=== PATIENT | male | born 1950 | race Caucasian/White ===

== ENCOUNTER 2019-06-24 07:47 | Inpatient (IN) ==
--- NOTE | 2019-06-09 13:03 | PAT Medication Instructions ---
Medication Instructions Date of Service June 09, 2019 Home Medications ascorbic acid (vitamin C) [Vitamin C] 1 g PO DAILY aspirin [Aspir-81] 81 mg PO DAILY lovastatin 40 mg PO QPM multivitamin 1 cap PO DAILY omega 1-ryq-ixz-fish oil [Fish Oil] 1 cap PO DAILY turmeric root extract 500 mg PO DAILY ASK your prescriber and surgeon aspirin [Aspir-81] 81 mg PO DAILY STOP taking 2 weeks before surgery (or as soon as possible if surgery is within 2 weeks) omega 0-ylq-cue-fish oil [Fish Oil] 1 cap PO DAILY turmeric root extract 500 mg PO DAILY DO NOT take the morning of surgery ascorbic acid (vitamin C) [Vitamin C] 1 g PO DAILY multivitamin 1 cap PO DAILY Take evening before surgery lovastatin 40 mg PO QPM Other Notes If you have any questions please call us at [phone] or [phone] or [phone] or [phone]
--- NOTE | 2019-06-10 10:48 | Anesthesiology Consultation ---
Date of Service June 10, 2019 Assessment & Plan (1) Encounter for pre-operative examination: Chart Review Chart Review: Acceptable Risk for Surgery and Patient seen in Pre Admission Testing Teaching & Discussion Instructed NPO after midnight before surgery, except medications with 15 cc of water. Medication instructions provided according to the PAT guidelines. History Surgery Operation Date: 06/24/19 10:05 Proposed Procedures p L3-S1 Decompression and Fusion, Spinal Cord Monitoring - Marcial Pack, Height/Weight Height: 5 ft 10 in Weight: 100.7 kg Allergies Allergy/AdvReac Type Severity Reaction Status Date / Time No Known Allergies Allergy Verified 06/02/19 14:54 Medications Home Medications Medication Instructions Recorded Confirmed Last Taken ascorbic acid (vitamin C) [Vitamin 1 g PO DAILY 06/02/19 06/02/19 Unknown C] aspirin [Aspir-81] 81 mg PO DAILY 06/02/19 06/02/19 Unknown lovastatin 40 mg PO QPM 06/02/19 06/02/19 Unknown multivitamin 1 cap PO DAILY 06/02/19 06/02/19 Unknown omega 0-clw-tbj-fish oil [Fish Oil] 1 cap PO DAILY 06/02/19 06/02/19 Unknown turmeric root extract 500 mg PO DAILY 06/02/19 06/02/19 Unknown Past Medical History Medical History History of cellulitis 2014 Hyperlipidemia Protrusion of intervertebral disc Sleep apnea CPAP Spinal stenosis Exercise / Class Metabolic Activity II 4-5 Yardwork/Stairs/Walk up hill (Limited by leg/back pain currently) Past Surgical History Surgical History History of colonoscopy Past Anesthesia History No Hx of Anesthesia Complications and No Family Hx of Anesthesia Complications GA NAIVE. History of PONV No Hx of PONV and No Hx of Motion Sickness Social History Smoking Status: Never smoker Do You Dip or Chew Tobacco: No Hx Alcohol Use: No Hx Substance Use: No substance use type: does not use Review of Systems Pt denies any recent chest pain, shortness of breath, palpitations, cough, fever or URI. Physical Exam Vital Signs BP: 120/77 P: 74bpm SPO2: 95% RA T: 98.2 F R: 16 ENMT Mouth: no dental restorations, no chipped teeth and no loose teeth Thyromental Distance: < 3.5 Finger Breadths (3) Mallampati Class: I Neck normal visual inspection; neck extension not limited Respiratory normal respiratory effort Auscultation: lungs clear to auscultation bilaterally Cardiovascular Rate/Rhythm: regular rate and regular rhythm Heart Sounds: + murmur (I/) Vessels: no carotid bruit Testing Laboratory Results 06/10/19 11:02 06/10/19 11:02 PT 10.2 Seconds (9.0-12.0) 06/10/19 11:02 INR 1.0 (0.9-1.1) 06/10/19 11:02 APTT 25.9 Seconds (21.0-31.0) 06/10/19 11:02 Blood Type O Positive 06/10/19 11:02 Antibody Screen NEGATIVE 06/10/19 11:02 Electrocardiogram Date: 06/10/19 Findings: + NSR @ (70bpm) Chest X-Ray Date: 06/10/19 Findings: + NAD
--- NOTE | 2019-06-10 11:43 | XRay Report ---
XR chest Pre-admission PA/Lat CLINICAL HISTORY: Preoperative chest COMPARISON STUDY: No previous studies for comparison. FINDINGS: The heart is the upper limits of normal in size. There is aortic tortuosity. There is no fa ilure. There is no focal pulmonary consolidation. No pleural effusions are visualized.[ IMPRESSION: No active disease in the chest. ACT 112: Negative or not required by law. Electronically signed by: Juan Man M.D. 06/10/2019 11:42 AM
[2019-06-10 12:08] LABS: Basophils # (auto) 0.03 K/uL (0-0.2); Basophils % (auto) 0.5 %; Eosinophils # (auto) 0.14 K/uL (0-0.5); Eosinophils % (auto) 2.5 %; Hematocrit (blood only) 41.9 % (42-52); Hemoglobin 14.4 g/dL (14.0-18.0); Immature Granulocytes # (auto) 0.01 K/uL (0.00-0.02); Immature Granulocytes % (auto) 0.2 %; Lymphocytes # (auto) 1.72 K/uL (1.2-3.4); Lymphocytes % (auto) 30.8 %; Mean Corpuscular Hemoglobin 31.3 pg (25-34); Mean Corpuscular Hgb Conc 34.4 g/dL (32-36); Mean Corpuscular Volume 91.1 fL (80-100); Mean Platelet Volume 10.8 fL (7.4-10.4); Monocytes # (auto) 0.65 K/uL (0.11-0.59); Monocytes % (auto) 11.6 %; Neutrophils # (auto) 3.04 K/uL (1.4-6.5); Neutrophils % (auto) 54.4 %; Platelet Count 197 K/uL (130-400); RDW Coefficient of Variation 13.1 % (11.5-14.5); RDW Standard Deviation 42.9 fL (36.4-46.3); White Blood Count 5.59 K/uL (4.8-10.8)
[2019-06-10 12:20] LABS: Partial Thromboplastin Time 25.9 Seconds (21.0-31.0); Prothrombin Time 10.2 Seconds (9.0-12.0)
--- NOTE | 2019-06-10 13:05 | Electrocardiogram Report ---
Test Reason : Blood Pressure : / mmHG Vent. Rate : 070 BPM Atrial Rate : 070 BPM P-R Int : 160 ms QRS Dur : 092 ms QT Int : 378 ms P-R-T Axes : 061 -12 008 degrees QTc Int : 408 ms Normal sinus rhythm Normal ECG No previous ECGs available Confirmed by Maynor Dickson ([id number]) on 06/10/2019 1:05:37 PM Referred By: Marcial Pack Confirmed By:Markie Dickson
[2019-06-10 13:17] LABS: BUN Creatinine Ratio 18.2 (10-20); Calcium 9.2 mg/dl (8.5-10.1); Creatinine Clr Calc Pharmacy 101.3 ml/min; Est GFR (African American) 104.8; Est GFR (Non-African American) 90.4; Potassium 4.1 mmol/L (3.5-5.1)
[~2019-06-24 07:47] MED LIST: ACETAMINOPHEN 500 MG TAB PO SCH; BACITRACIN INJ 50,000 UNIT VIAL ONE; BUPIVACAINE/EPINEPHRINE 0.5% MPF 1:200,000 10 ML VIAL ONE; CEFAZOLIN 2000MG 2,000 MG/15 ML SYR IV SCH; CeleBREX 200 MG CAP PO SCH; GABAPENTIN 300 MG CAP PO SCH; LR 15ML/HR IV SCH; MIDAZOLAM HCL 1 MG/ML 2ML VIAL ONE; fentaNYL citrate 100 MCG/2 ML VIAL ONE
--- NOTE | 2019-06-24 07:56 | History & Physical Report ---
Date of Service June 24, 2019 Assessment & Plan (1) Neurogenic claudication due to lumbar spinal stenosis: L3-S1 decompression fusion Present on Admission?: Yes History of Present Illness Chief Complaint: Back and leg pain Primary Care Provider: Arnoldo Malik MD This is a 69-year-old male who presents with chronic persistent back and leg pain after failing extensive course of nonoperative care is here for surgical invention. Allergies Allergy/AdvReac Type Severity Reaction Status Date / Time No Known Allergies Allergy Verified 06/02/19 14:54 Home Medications Home Medications Medication Instructions Recorded Confirmed Type ascorbic acid (vitamin C) [Vitamin 1 g PO DAILY 06/02/19 06/02/19 History C] aspirin [Aspir-81] 81 mg PO DAILY 06/02/19 06/02/19 History lovastatin 40 mg PO QPM 06/02/19 06/02/19 History multivitamin 1 cap PO DAILY 06/02/19 06/02/19 History omega 6-xgr-pqh-fish oil [Fish Oil] 1 cap PO DAILY 06/02/19 06/02/19 History turmeric root extract 500 mg PO DAILY 06/02/19 06/02/19 History Past Med/Surg History Medical History History of cellulitis 2014 Hyperlipidemia Protrusion of intervertebral disc Sleep apnea CPAP Spinal stenosis Surgical History History of colonoscopy Social History Preferred Language: Montserratian Communication Ability: Effective Clinical Rehabilitation Coordinator Required: No Beliefs That Will Affect Care: Jain Jain Beliefs: BUDDHISM Current Living Situation: Spouse Other Information That Helps Us Care for You: No Feels Safe at Home: Yes Smoking Status: Never smoker Do You Dip or Chew Tobacco: No ; Hx Alcohol Use: No Hx Substance Use: No Physical Exam Physical Exam: Patient alert and oriented neurologically intact.
--- NOTE | 2019-06-24 07:56 | History & Physical Bridge Note ---
Date of Service June 24, 2019 History & Physical Bridge Note I have examined the patient, reviewed the History & Physical and in the interval since the performance of the History & Physical I have noted the following changes of clinical significance: no changes noted
[2019-06-24] MEDS ORDERED: ONDANSETRON INJ 2 MG/ML 2 ML VIAL IV PRN ×2 (08:20→12:51)
[2019-06-24] MEDS ORDERED: ATROPINE SULFATE 0.1 MG/ML 10ML SYR IV PRN (08:20)
[2019-06-24] MEDS ORDERED: ePHEDrine sulfate 50 MG/ML AMP IV PRN (08:20)
[2019-06-24] MEDS ORDERED: PROMETHAZINE HCL 6.25 MG in SODIUM CHLORIDE 0.9% 50 ML IV PRN (08:20)
[2019-06-24] MEDS ORDERED: HYDROmorphone INJ 2 MG/ML SYR/VIAL IV PRN (08:20)
[2019-06-24] MEDS ORDERED: HYDROmorphone INJ 2 MG/ML SYR/VIAL ONE (08:50)
[2019-06-24] MEDS ORDERED: LARYING-O-JET KIT (LTA) ONE (09:14)
[2019-06-24] MEDS ORDERED: PHENYLEPHRINE 100MCG/ML 5ML SYR ONE (09:14)
[2019-06-24] MEDS ORDERED: ROCURONIUM BROMIDE 10 MG/ML 5 ML VIAL ONE (09:14)
[2019-06-24] MEDS ORDERED: NEOSTIGMINE METHYLSULFATE 1 MG/ML 10ML VIAL ONE (09:14)
[2019-06-24] MEDS ORDERED: PROPOFOL IV EMULSION 10 MG/ML 20 ML VIAL IV ONE (09:14)
[2019-06-24] MEDS ORDERED: DEXAMETHASONE SOD INJ 4 MG/ML VIAL ONE (09:14)
[2019-06-24] MEDS ORDERED: LIDOCAINE HCL 2% 2 ML VIAL/AMP(20MG/ML) INFIL ONE (09:14)
[2019-06-24] MEDS ORDERED: GLYCOPYRROLATE 0.2 MG/ML VIAL ONE (09:14)
[2019-06-24] MEDS ORDERED: ONDANSETRON INJ 2 MG/ML 2 ML VIAL ONE (09:14)
[2019-06-24] MEDS ORDERED: DURASEAL DURAL SEALANT 5ML TOP ONE (10:48)
[2019-06-24] MEDS ORDERED: FLOSEAL HEMOSTATIC MATRIX 10ML TOP ONE (10:49)
--- NOTE | 2019-06-24 11:00 | Operative Report ---
Post Operative Report Pre & Post Diagnosis Operation Date: 06/24/19 10:05 Pre-Op Diagnosis: Spinal Stenosis, Lumbar Region Post-Op Diagnosis: Spinal Stenosis, Lumbar Region I identified the patient and participated in the time-out.: Yes Procedure Operation Date: 06/24/19 10:05 Actual Procedures #1 lumbar decompression with bilateral medial facetectomies foraminotomies L2-3, L3-4, L4-5. #2 posterior spinal fusion L3-4 L4-5 L5-S1. #3 placement posterior segmental instrumentation including a cross-link from L3-S1. #4 placement locally harvested morselized autograft in the posterior lateral gutters. #5 placement infuse collagen sponge, master graft in the posterior lateral gutters and osteopenia by space. Surgeon Marcial Pack, DO Maintenance Carpenter Greyson Dodson Estimated Blood Loss 300 Findings Consistent with Post-Op Diagnosis Specimens None Indications This is a 61-year-old male who presents above-mentioned diagnosis after failing extensive course of nonoperative care elected to go with above-mentioned procedure. Description of Procedure Patient was met with identified informed consent obtained. Patient was then taken to the operative suite underwent intubation placed in a prone position the Reagan table on top of the Miguel frame. All bony prominences were well-padded eyes inspected to ensure no external pressure placed upon. This point the lumbar spine was prepped and draped in normal sterile fashion. Sharp dissection with the assistance of Bovie cautery was performed down to and exposing the lamina and transverse processes of L3 L4-5 and sacral ala bilaterally. From caudal cephalad fashion complete laminectomy of L4 L3 partial laminectomy of L2 was performed with bilateral medial facetectomies and foraminotomies. I did experience an incidental durotomy along the left posterior aspect of the sacrum. The bone was very thin and during this preparation for fusion durotomy was noted. I did place DuraGen and DuraSeal over the area all evidence of fluid will leak was addressed. Pedicle screws were then placed in L3-L4-L5 and S1 levels bilaterally with assistance of fluoroscopy the proper sized yumiko locked into position as well as a cross-link. The transverse processes of L3-L4-L5 and the sacral ala were then burred to subcortical bleeding bone. Infuse collagen sponge master graft local autograft was placed in the posterior lateral gutters. 15 round BORIS drain inserted. Incision was then closed with 1 Vicryl in the fascia 2-0 Vicryl subcutaneously and 4 Monocryl for final skin closure. Steri- Strips dressings placed. Patient will continue PACU stable condition. Please note Greyson Dodson was present at the entire procedure involved the patient positioning complex portions of the surgery and final skin closure. Lastly spinal cord monitoring was utilized that the procedure no changes noted. I attest to the content of the Intraoperative Record and any orders documented therein. Any exceptions are noted below.
--- NOTE | 2019-06-24 11:20 | Fluoroscopy Report ---
FL lumbar spine 2-3V CLINICAL HISTORY: L3-S1 DECOMPRESSION AND FUSION COMPARISON STUDY: None. FLUOROSCOPY TIME: 35.4 seconds. FLUOROSCOPIC IMAGES: 2 FINDINGS: These images demonstrate a posterior decompression. There are bilateral pedicle screws at t he L3, L4, L5 and S1 levels with interconnecting rods. There are no unexpected radiopaque foreign bod ies. IMPRESSION: Fluoroscopic images demonstrating an L3-S1 decompression and fusion. ACT 112: Negative or not required by law. Electronically signed by: Shahid Henao M.D. 06/24/2019 11:19 AM
[2019-06-24] MEDS: fentaNYL citrate 100 MCG/2 ML VIAL IV PRN ×2 (11:46→12:00)
--- NOTE | 2019-06-24 12:02 | Anesthesiology Progress Note ---
Date of Service June 24, 2019 Anesthesia Post Procedure Vital Signs Vital Signs: Temp Pulse Pulse Resp BP BP Pulse Ox 06/24/19 11:55 81 14 147/78 H 95 06/24/19 11:45 81 12 136/76 95 06/24/19 11:35 82 12 144/86 H 98 06/24/19 11:25 36.5 C 78 12 142/80 H 97 06/24/19 08:06 37.1 C 86 18 170/91 H 95 Pain Intensity Lower Back: Pain Intensity: 4 Transfer of Care Handoff Completed per policy Notes Mental Status: alert / awake / arousable Patient Amnestic to Procedure: Yes Nausea / Vomiting: adequately controlled Pain: adequately controlled Airway Patency, RR, SpO2: stable & adequate BP & HR: stable & adequate Hydration State: stable & adequate Anesthetic Complications: no major complications apparent
[2019-06-24] MEDS ORDERED: FAMOTIDINE 20 MG TAB PO PRN (12:51)
[2019-06-24] MEDS ORDERED: DO NOT ADMINISTER PNEUMOCOCCAL VACCINE PRN (12:51)
[2019-06-24] MEDS ORDERED: LORazepam 0.5 MG TAB PO PRN (12:51)
[2019-06-24] MEDS ORDERED: bisacodyL 10 MG SUPP PR PRN (12:51)
[2019-06-24] MEDS ORDERED: TRAMADOL HCL 50 MG TABLET PO PRN (12:51)
[2019-06-24] MEDS ORDERED: MAGNESIUM HYDROXIDE SUSP 30 ML UDC PO PRN (12:51)
[2019-06-24] MEDS ORDERED: LORazepam 0.5 MG/1 ML VIAL IV PRN (12:51)
[2019-06-24] MEDS ORDERED: HYDROmorphone INJ 0.5 MG/0.5 ML SYR IV PRN (12:51)
[2019-06-24] MEDS ORDERED: HYDROmorphone INJ 1 MG/ML SYRINGE IV PRN (12:51)
[2019-06-24] MEDS ORDERED: PROMETHAZINE HCL 12.5 MG in SODIUM CHLORIDE 0.9% 50 ML IV PRN (12:51)
[2019-06-24] MEDS ORDERED: ACETAMINOPHEN 1,000 MG/100 ML VIAL IV PRN (12:51)
[2019-06-24] MEDS ORDERED: DO NOT ADMINISTER FLU VACCINE PRN (12:51)
[2019-06-24] MEDS ORDERED: ONDANSETRON 4 MG OD TAB PO PRN (12:51)
[2019-06-24] MEDS ORDERED: METOCLOPRAMIDE HCL INJ 5 MG/ML 2 ML VIAL IV PRN (12:51)
[2019-06-24] MEDS ORDERED: ACETAMINOPHEN 500 MG TAB PO PRN (12:51)
[2019-06-24] MEDS ORDERED: SOD PHOSPHATE/SOD BIPHOSPHATE ENEMA 132 ML BTL PR PRN (12:51)
[2019-06-24] MEDS ORDERED: NALOXONE HCL 0.4 MG/1 ML VIAL/CARP IV PRN (12:51)
[2019-06-24] MEDS: KETOROLAC TROMETHAMINE 15 MG/ML VIAL IV SCH ×2 (13:23→20:02)
[2019-06-24] MEDS: LACTATED RINGER'S 1,000 ML IV SCH ×2 (13:25→19:33)
[2019-06-24] MEDS: OXYCODONE HCL IR 5 MG TAB (IMMEDIATE RELEASE) PO PRN ×2 (16:52→23:58)
[2019-06-24] MEDS: CEFAZOLIN 2000MG 2,000 MG/15 ML SYR IV SCH (19:33)
[2019-06-24] MEDS: LOVASTATIN 20 MG TAB PO SCH (20:11)
[2019-06-24] MEDS: DOCUSATE SODIUM/SENNA 50/8.6MG TAB PO SCH (20:11)
[2019-06-25] MEDS: CEFAZOLIN 2000MG 2,000 MG/15 ML SYR IV SCH (02:12)
[2019-06-25] MEDS: KETOROLAC TROMETHAMINE 15 MG/ML VIAL IV SCH ×2 (02:12→09:14)
[2019-06-25] MEDS: LACTATED RINGER'S 1,000 ML IV SCH (02:13)
[2019-06-25 05:57] LABS: Basophils # (auto) 0.01 K/uL (0-0.2); Basophils % (auto) 0.1 %; Eosinophils # (auto) 0.01 K/uL (0-0.5); Eosinophils % (auto) 0.1 %; Hematocrit (blood only) 31.9 % (42-52); Hemoglobin 11.1 g/dL (14.0-18.0); Immature Granulocytes # (auto) 0.03 K/uL (0.00-0.02); Immature Granulocytes % (auto) 0.3 %; Lymphocytes # (auto) 1.26 K/uL (1.2-3.4); Lymphocytes % (auto) 13.1 %; Mean Corpuscular Hemoglobin 30.9 pg (25-34); Mean Corpuscular Hgb Conc 34.8 g/dL (32-36); Mean Corpuscular Volume 88.9 fL (80-100); Monocytes # (auto) 1.04 K/uL (0.11-0.59); Monocytes % (auto) 10.8 %; Neutrophils # (auto) 7.28 K/uL (1.4-6.5); Neutrophils % (auto) 75.6 %; Platelet Count 175 K/uL (130-400); RDW Coefficient of Variation 12.9 % (11.5-14.5); RDW Standard Deviation 41.5 fL (36.4-46.3); Red Blood Count 3.59 M/uL (4.7-6.1); White Blood Count 9.63 K/uL (4.8-10.8)
[2019-06-25] MEDS: OXYCODONE HCL IR 5 MG TAB (IMMEDIATE RELEASE) PO PRN ×4 (06:08→23:24)
[2019-06-25] MEDS: POLYETHYLENE (MIRALAX) 17 GM PACK PO SCH ×4 (06:09→23:25)
[2019-06-25 06:22] LABS: BUN Creatinine Ratio 18.3 (10-20); Calcium 8.3 mg/dl (8.5-10.1); Creatinine Clr Calc Pharmacy 119.7 ml/min; Est GFR (African American) 111.7; Est GFR (Non-African American) 96.4; Potassium 3.9 mmol/L (3.5-5.1)
[2019-06-25] MEDS: ASCORBIC ACID 500 MG TAB PO SCH (09:13)
[2019-06-25] MEDS: MULTIVITAMIN TAB PO SCH (09:13)
[2019-06-25] MEDS: ASPIRIN 81 MG ECTAB PO SCH (09:13)
--- NOTE | 2019-06-25 10:44 | Orthopedic Progress Note ---
Date of Service June 25, 2019 Assessment & Plan (1) Neurogenic claudication due to lumbar spinal stenosis: At this time we will allow him to sit up in bed as tolerated. Pending his progress throughout the day when I see him tomorrow I may initiate physical therapy. Present on Admission?: Yes Admission and Anticipated Discharge Date Admission Date: June 24, 2019 Subjective Patient's back pain is controlled he is no leg pain denies any nausea vomiting headaches or photophobia. Physical Exam Physical Exam: On exam is able to sit up in bed. He has excellent strength testing lower extremities. Results & Data ([facility]) Vital Signs (Past 12 Hours) Vital Signs Temp Pulse Resp BP Pulse Ox 06/25/19 07:40 94 06/25/19 07:23 36.4 C L 74 16 123/74 94 06/25/19 03:18 36.5 C 80 16 113/65 94 06/24/19 23:14 36.8 C 100 H 16 106/65 94
[2019-06-25] MEDS: ALUMINUM/MAGNESIUM SUSP 30 ML UDC PO PRN (17:38)
[2019-06-25] MEDS: LOVASTATIN 20 MG TAB PO SCH (20:16)
[2019-06-25] MEDS: DOCUSATE SODIUM/SENNA 50/8.6MG TAB PO SCH (20:16)
[2019-06-26] MEDS: POLYETHYLENE (MIRALAX) 17 GM PACK PO SCH ×4 (05:56→23:51)
[2019-06-26] MEDS: ASPIRIN 81 MG ECTAB PO SCH (08:50)
[2019-06-26] MEDS: MULTIVITAMIN TAB PO SCH (08:50)
[2019-06-26] MEDS: ASCORBIC ACID 500 MG TAB PO SCH (08:51)
--- NOTE | 2019-06-26 10:13 | Orthopedic Progress Note ---
Date of Service June 26, 2019 Assessment & Plan (1) Neurogenic claudication due to lumbar spinal stenosis: This time will initiate bed to chair and bathroom privileges today. If he tolerates this well and will increase activity tomorrow with physical therapy. I did remove his drain this morning. Present on Admission?: Yes Admission and Anticipated Discharge Date Admission Date: June 24, 2019 Subjective Patient's back pain is controlled denies nausea vomiting or headaches. Physical Exam Physical Exam: On exam I did have him sit up and stand without difficulty. He is somewhat weak but tolerated this relatively well. No strength deficits noted. Results & Data ([facility]) Vital Signs (Past 12 Hours) Vital Signs Temp Pulse Resp BP Pulse Ox 06/26/19 07:18 36.9 C 72 16 113/69 95 06/26/19 04:33 94 06/25/19 23:39 16 93 06/25/19 22:57 37.0 C 86 16 117/67 87 L
[2019-06-26] MEDS: OXYCODONE HCL IR 5 MG TAB (IMMEDIATE RELEASE) PO PRN ×3 (10:22→20:07)
[2019-06-26] MEDS: LOVASTATIN 20 MG TAB PO SCH (22:07)
[2019-06-26] MEDS: DOCUSATE SODIUM/SENNA 50/8.6MG TAB PO SCH (22:08)
[2019-06-27] MEDS: ALUMINUM/MAGNESIUM SUSP 30 ML UDC PO PRN (02:03)
[2019-06-27] MEDS: OXYCODONE HCL IR 5 MG TAB (IMMEDIATE RELEASE) PO PRN ×4 (02:04→21:30)
[2019-06-27] MEDS: POLYETHYLENE (MIRALAX) 17 GM PACK PO SCH ×2 (05:43→13:15)
--- NOTE | 2019-06-27 07:50 | Anesthesiology Progress Note ---
Date of Service June 27, 2019 Anesthesia Post Procedure Vital Signs Vital Signs: Temp Pulse Pulse Pulse Resp BP Pulse Ox 06/27/19 07:44 94 06/27/19 07:20 37.2 C 95 H 13 126/70 89 L 06/26/19 22:52 37.3 C 88 16 131/88 91 06/26/19 15:02 36.7 C 81 18 130/56 L 95 Pain Intensity Lower Back: Pain Intensity: 5 Notes Mental Status: alert / awake / arousable and participated in evaluation Patient Amnestic to Procedure: Yes Nausea / Vomiting: adequately controlled Pain: adequately controlled Airway Patency, RR, SpO2: stable & adequate BP & HR: stable & adequate Hydration State: stable & adequate Anesthetic Complications: no major complications apparent and Pt Satisfied with anesthetic care
[2019-06-27] MEDS: MULTIVITAMIN TAB PO SCH (08:37)
[2019-06-27] MEDS: ASPIRIN 81 MG ECTAB PO SCH (08:37)
[2019-06-27] MEDS: ASCORBIC ACID 500 MG TAB PO SCH (08:37)
--- NOTE | 2019-06-27 12:21 | Orthopedic Progress Note ---
Date of Service June 27, 2019 Assessment & Plan (1) Neurogenic claudication due to lumbar spinal stenosis: At this time we will continue to advance his bowel regimen to be ambulate as tolerated. Hopefully will be able to discharge home tomorrow. Present on Admission?: Yes Admission and Anticipated Discharge Date Admission Date: June 24, 2019 Subjective Patient's back pain is controlled leg symptoms markedly improved. Denies any nausea vomiting headaches. He is struggling with significant abdominal discomfort. He has been on a liquid diet only. Physical Exam Physical Exam: On exam is good strength testing. His abdomen is distended. Results & Data ([facility]) Vital Signs (Past 12 Hours) Vital Signs Temp Pulse Resp BP Pulse Ox 06/27/19 07:44 94 06/27/19 07:20 37.2 C 95 H 13 126/70 89 L
[2019-06-27] MEDS: LOVASTATIN 20 MG TAB PO SCH (21:31)
[2019-06-27] MEDS: DOCUSATE SODIUM/SENNA 50/8.6MG TAB PO SCH (21:31)
[2019-06-28] MEDS: OXYCODONE HCL IR 5 MG TAB (IMMEDIATE RELEASE) PO PRN (06:09)
[2019-06-28] MEDS: MULTIVITAMIN TAB PO SCH (08:26)
[2019-06-28] MEDS: ASCORBIC ACID 500 MG TAB PO SCH (08:26)
[2019-06-28] MEDS: ASPIRIN 81 MG ECTAB PO SCH (08:26)
--- NOTE | 2019-06-28 10:46 | Discharge Summary ---
Date of Service June 28, 2019 Admission HPI Per Admitting Provider This is a 69-year-old male who presents with chronic persistent back and leg pain after failing extensive course of nonoperative care is here for surgical invention. Principal Diagnosis Lumbar spinal stenosis with neurogenic claudication Discharge Data Allergies Allergy/AdvReac Type Severity Reaction Status Date / Time No Known Allergies Allergy Verified 06/24/19 08:05 Consultations 06/24/19 12:51 Consult Case Management - Discharge Planning Routine Procedures Performed Operation Date: 06/24/19 10:05 Actual Procedures p L3-S1 Decompression and Fusion, Spinal Cord Monitoring, - DO hector Barragan Repair of Dura Tear - Marcial Pack DO Ordered Studies 06/24/19 [place] fluoroscopy <1hr Routine [place] lumbar spine 2-3V Routine Hospital Course (1) Neurogenic claudication due to lumbar spinal stenosis: Patient underwent lumbar decompression fusion tolerated so was taken to orthopedic for postoperative. Postop day 1 I did maintain bedrest. He tolerated this well postop day #2 we had him sit up out of bed. I had him stand. He tolerated this well. Subsequently initiated ambulation the following day. He tolerated this well. And marked improvement in his leg and pain and back symptoms bowels working well. Subsequently discharged home. Discharge orders instructions from the chart for further view. Total Time Total Time Spent Total Time Spent (In Minutes): 20 minutes Discharge Plan Discharge Items Patient Disposition: Home - Self-Care Reason For Visit: Spinal Stenosis, Lumbar Region Discharge Diagnosis: Lumbar spinal stenosis Activity: As commented below Non-emergency contact: Primary Care Provider Call non-emergency contact if: you have any medication questions Follow-up/Referrals: Arnoldo Malik MD [Primary Care Provider] - Diet: Regular Addtl Attending Provider Instructions: ACTIVITY RECOMMENDATIONS: SELF CARE INSTRUCTIONS AFTER THORACIC/LUMBAR FUSIONS 1. You may walk to your tolerance. It is good exercise for your legs and back. Expect some back and intermittent leg aches and pains. 2. You may perform "counter-top" level activities (make a sandwich, humble with a project, etc.). 3. No bending or lifting of more than 10 pounds or back twisting of any nature (roll like a log when turning in bed). 4. You may ride in a car for 20-30 minutes at a time. No driving until after your first visit with your doctor. 5. Frequent changes of position and restricting sitting to 30 minutes at a time will help limit the amount of back spasms and stiffness you may experience. 6. You may discontinue the use of ambulatory aids (cane, crutches, etc.) once your strength and confidence allow. 7. You may window glass cutter off the shower and let water strike your incision when you arrive home at least once daily. Do not take a tub bath, sit in a hot tub or go into a swimming pool until after your first recheck in the office. SPECIAL CARE INSTRUCTIONS: VERY IMPORTANT TO READ AND REVIEW A. Your surgical incision has been closed with a cosmetic suture under the skin that will dissolve in about 6 weeks. In 14 days, you can use a pair of clean scissors and cut the suture that is left outside of the skin at the ends of your incision. 1. The small skin tapes can be removed 7 days after surgery if they have not fallen off by that point. 2. You may keep the wound open to air as much as possible to promote healing after post-op day number 5 unless told otherwise by your doctor. 3. If you think the wound looks like it is becoming infected (redness or worsening drainage) and/or you are experiencing fever, chill or worsening back pain and muscle spasms, contact the office so that we may evaluate you as soon as possible. B. Complications are uncommon, but please contact us if you have any signs or symptoms of: 1. wound infection (fever higher than 102.5 degrees F, redness, separation of wound, drainage, or increasing pain from the incision) 2. blood clots in legs (pain, swelling, redness and warmth in legs) 3. urinary tract infection (fever higher than 102.5 degrees F, burning upon urination or increased frequency of urination) 4. nerve problems (inability to walk on your toes or heels, numbness, loss of bowel or bladder control) 5. any other symptoms that concern you C. Please call the office at if you have any concerns or questions about your operation or recovery. D. No smoking! Smoking drastically decreases the chance of a solid fusion. E. Do not take any anti-inflammatory medications (Indocin, Advil, Motrin, Aspirin, Naprosyn, etc.) as these may inhibit the chance of a solid fusion. Tylenol is okay to take for pain. MANAGING PAIN AFTER SPINAL SURGERY 1. Narcotic medication is intended for short-term use and will be provided for surgical pain. Surgical pain usually lasts for a period of 4-6 weeks. Narcotic medication includes Percocet, Vicodin, Darvocet, Tylenol #3 or Lortab. 2. Longer-term pain is more appropriately treated with non-narcotic medication such as Tylenol ES. 3. Muscle spasm is not appropriately treated with narcotics. Muscle relaxers such as Soma, Flexeril or Skelaxin can be used along with Tylenol ES. 4. Remember that we all live with some "aches and pains". This is not unusual or uncommon after an injury or as we get older. a. Back pain is expected and may include muscle spasms for 4 to 6 weeks after surgery. The pain should gradually improve. If the pain worsens for no apparent reason, please contact the office. b. Intermittent leg pain may also be experienced and should not be concerned about unless it worsens for no apparent reason. If so, please contact the office. 5. We will provide appropriate medication within the normal guidelines of their prescribed use. We will also be very cautious and aware of potential abuse and extended duration of patients' medication needs. a. Pain medications are for your comfort and to assist with sleep and rest so that the tissue can heal. They are not provided in order to return to normal activity and should not be used through the day. To do so or worsening pain at night can result from ongoing tissue damage and development of tolerance to the prescribed medicine. 6. Please allow 2-3 days to process refills. Prescriptions will not be mailed but must be picked up at the office. FOLLOW UP VISIT: Keep your scheduled follow-up appointment. Any questions, please call the office at . Pending Studies at Discharge: No Stand-Alone Forms: [employer], Smoking Cessation Medications and DC Order Prescriptions: New tramadol 50 mg tablet 50 mg PO Q6H PRN (Reason: pain, moderate) Qty: 30 RF: 0 oxycodone 5 mg tablet 5 mg PO Q6H PRN (Reason: pain, severe) Qty: 30 RF: 0 Continued ascorbic acid (vitamin C) [Vitamin C] 1,000 mg Tablet 1 g PO DAILY RF: 0 lovastatin 40 mg Tablet 40 mg PO QPM RF: 0 aspirin [Aspir-81] 81 mg Tablet,Delayed Release (Dr/Ec) 81 mg PO DAILY RF: 0 multivitamin Capsule 1 cap PO DAILY RF: 0 omega 8-lbd-vnu-fish oil [Fish Oil] 1,000 mg (120 mg-180 mg) Capsule 1 cap PO DAILY RF: 0 turmeric root extract 500 mg Capsule 500 mg PO DAILY RF: 0 Discharge Orders: Discharge Order (Routine); Ordered 06/28/19 Ordered By: Marcial Pack Admission Data Admit Date/Time: 06/24/19 11:57 Attending Provider: Marcial Pack Admit Provider: Marcial Pack Primary Care Provider: Arnoldo Malik I.
== END 2019-06-28 12:30 | disposition home or self-care (01) | DRG 460 ==
LOC: ASU 07:47 → 3E 11:57